=== PATIENT | female | born 1980 | race Caucasian/White ===

== ENCOUNTER 2016-11-15 19:56 | Emergency (ER) | payer OTHER ==
[~2016-11-15] VITALS: Ht 175.3 cm; Wt 117.9 kg
--- NOTE | ~2016-11-15 | EKG ---
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
[~2016-11-15 19:56] MED LIST: ADVAIR HFA 1112 UNIT INH; ALBUTEROL2.5 MG/0.5 INH; ALPRAZOLAM; ALPRAZOLAM1 MG PO; AMBIEN 10 MG TA10 MG; AMBIEN 5 MG TABL5 M1 PO; AMITRIPTYLINE H10 M3 PO; AMOXICILLIN 50500 M1 PO; AMOXICILLIN500 M1 PO; AUGMENTIN 875875 MG PO; AZITHROMYCIN 2250 MG PO; BENADRYL25 MG PO; BENZONATATE100 MG PO; BIRTH CONTROL; BIRTH CONTROL PO; CARAFATE 11 GM/10 M1 PO; CARISOPRODOL 3350 MG PO; CIPROFLOXACIN500 M1 PO; CITRUCEL CAPLET1 TA1 PO; COMBIVENT INH; CYCLOBENZAPRINE; CYMBALTA30 MG PO; DILAUDID 4 MG TA4 M1 OR; DILAUDID OR; DILAUDID2 M1 PO; DOXYCYCLINE 10100 MG PO; DUONEB 2.5-0.5 M3 ML IH; DUONEB 2.5-0.5 M3 ML INH; FLAGYL500 MG PO; FLEXERIL; FLEXERIL PO; FLONASE 0.05%50 MCG NASAL; FLOXIN OTI0.3 %/5 M1 OT; GLUCOPHAGE1000 MG PO; HYDROCODON-ACE1 EAC7 PO; IBUPROFEN 800800 M1 PO; INVOKANA300 MG PO; IRON325; JANUMET 50-5001 EACH PO; JANUVIA100 MG PO; JANUVIA50 MG; LANTUS; LANTUS SC; LANTUS SQ; LANTUS SUBQ; LANTUS100 UNIT/M SUBQ; LISINOPRIL20 MG PO; LISINOPRIL40 MG PO; LOESTRIN 24 FE1 EACH PO; LOVASTAT20 PO; LUNESTA3 MG PO; MACROBID 100 M100 M1 PO; MEDROLDOSEPACK PO; MINASTRIN 24 F1 EACH PO; MUCINEX DM ER1 EAC1 PO; MUCINEX DM TABL1 TA1 PO; NICOTINE TRANSD14 M1 TD; NICOTINE TRANSD21 M1 TRANSDERM; NOHOMEMEDICATIONS; NORCO 5-325 TA1 EACH PO; NORCO 7.5-3251 EACH PO; NORVASC 2.5 MG2.5 M1 PO; NOVOLOG100 UNIT/1 SQ; NOVOLOG100 UNIT/1 SUBQ; PENICILLIN VK500 M1 PO; PHENERGAN 25 MG25 M1 PO; PHENERGAN 25 MG25 MG PO; PHENERGAN-CODE120 ML PO; PREDNISONE 10 M10 M1; PREDNISONE 10 M10 M1 PO; PREDNISONE 20 M20 M1 PO; PREDNISONE 20 M20 MG PO; PREDNISONE50 MG PO; PROAIR HFA8.5 GM INH; PROAMATINE OR; PROMETHAZINE V480 M1 PO; PROMETHAZINE/C118 ML PO; PROMS25 WY RECTAL; PROVENTIL HFA6.7 G1 INH; PROVENTIL IN; PT NOT TAKING MEDS; QVAR HFA 440 MCG/UN1 INH; RANITIDINE 150150 M1 PO; REGLAN 10 MG TA10 MG PO; TESSALON200 MG PO; ULTRAM 50MG TAB50 MG PO; VALIUM2 MG PO; VANCOCIN HCL125 MG OR; VENTOLIN HFA INH8 GM INH; VENTOLIN17 GM INH; VERAPAMIL HCL180 M4 OR; VICODIN 5-5001 EACH PO; VICOPROFEN 2001 EACH PO; VITAMIN D 5050000 I1 PO; XANAX 0.5 MG0.5 M1 PO; XANAX XR1 MG; XANAX XR1 MG PO; XANAX1 MG PO; ZANTAC 150MG T150 M1; ZANTAC 150MG T150 M1 PO; ZOFRAN ODT4 MG PO; ZPAK PO; ZYRTEC-D TABLE1 EAC1 PO
[2016-11-15 22:04] LABS: ABSOLUTE NEUTROPHILS 5.7 thou/uL (1.4-8.2); BASOPHILS 0.7 % (0.0-2.0); EOSINOPHILS 3.5 % (0.0-3.0); HEMATOCRIT 41.6 % (37.0-47.0); HEMOGLOBIN 13.8 gm/dL (12.0-15.0); LYMPHOCYTES 23.4 % (24.0-44.0); MCHC 33.1 % (28.0-37.0); MCV 78.5 fL (80.0-100.0); MONOCYTES 7.1 % (1.0-8.0); PLATELET COUNT 239 thou/uL (150-400); POLYS 65.3 % (36.0-66.0); WBC 8.7 thou/uL (4.0-11.0)
[2016-11-15 22:10] LABS: MANUAL DIFF NO
[2016-11-15 23:35] LABS: POTASSIUM 3.8 mmol/L (3.5-5.1)
[2016-11-15 23:39] LABS: CALCIUM 8.9 mg/dL (8.5-10.1); CREATININE 0.7 mg/dL (0.6-1.3)
[2016-11-15 23:42] LABS: ALBUMIN 3.5 g/dL (3.4-5.0)
[2016-11-15] MEDS ORDERED: PREDNISONE 20 M20 MG PO (23:42)
[2016-11-15] MEDS ORDERED: VENTOLIN HFA 1818 GM INH (23:42)
[2016-11-15] MEDS ORDERED: TYLENOL WITH CO1 TA1 PO (23:42)
[2016-11-15 23:44] LABS: TOTAL BILIRUBIN 0.3 mg/dL (<0.1-1.0); TOTAL PROTEIN 8.1 g/dL (6.4-8.2)
[2016-12-09] MEDS ORDERED: NAPROSYN500 MG PO (21:51)
[2016-12-09] MEDS ORDERED: VENTOLIN HFA 1818 GM INH (21:51)
[2016-12-09] MEDS ORDERED: TESSALON PERLE100 MG PO (21:51)
[2017-01-02] MEDS ORDERED: VICTOZA0.6 MG/0.1 SUBQ (15:26)
[2017-01-02] MEDS ORDERED: BENTYL 20 MG TA20 M1 PO (19:45)
[2017-01-02] MEDS ORDERED: REGLAN 5 MG TAB5 MG PO (19:45)
== END 2016-11-16 01:09 | disposition home or self-care (01) ==
LOC: ER 19:56
PROVIDERS: Emergency Medicine
DX: J45.909 Unspecified asthma, uncomplicated (principal); E11.9 Type 2 diabetes mellitus without complications; I10 Essential (primary) hypertension; F41.9 Anxiety disorder, unspecified; E78.5 Hyperlipidemia, unspecified; E66.9 Obesity, unspecified; Z88.6 Allergy status to analgesic agent; F17.210 Nicotine dependence, cigarettes, uncomplicated; F10.99 Alcohol use, unspecified with unspecified alcohol-induced disorder

== ENCOUNTER 2018-05-01 01:29 | Emergency (ER) | payer OTHER ==
[~2018-05-01] VITALS: Ht 172.7 cm; Wt 127.0 kg
[~2018-05-01 01:29] MED LIST changes: +BENTYL 20 MG TA20 M1 PO; +NAPROSYN500 MG PO; +REGLAN 5 MG TAB5 MG PO; +TESSALON PERLE100 MG PO; +TYLENOL WITH CO1 TA1 PO; +VENTOLIN HFA 1818 GM INH; +VICTOZA0.6 MG/0.1 SUBQ
[2018-05-01 02:02] LABS: ABSOLUTE NEUTROPHILS 5.9 thou/uL (1.4-8.2); BASOPHILS 0.7 % (0.0-2.0); EOSINOPHILS 3.8 % (0.0-3.0); HEMATOCRIT 39.1 % (37.0-47.0); HEMOGLOBIN 13.6 gm/dL (12.0-15.0); LYMPHOCYTES 39.8 % (24.0-44.0); MCH 27.4 pg (26.0-34.0); MCHC 34.8 g/dL (28.0-37.0); MCV 78.8 fL (80.0-100.0); MONOCYTES 4.4 % (1.0-8.0); PLATELET COUNT 308 thou/uL (150-400); POLYS 51.3 % (36.0-66.0); RBC 4.97 mil/uL (4.20-5.00); RDW 13.6 % (10.5-14.5); WBC 11.5 thou/uL (4.0-11.0)
[2018-05-01 02:10] LABS: ANION GAP 10 mmol/L (7-16); BUN 11 mg/dL (7-18); CALCIUM 9.2 mg/dL (8.5-10.1); CHLORIDE 96 mmol/L (98-107); CO2 24 mmol/L (21-32); CREATININE 0.9 mg/dL (0.6-1.0); GLUCOSE 396 mg/dL (74-106); POTASSIUM 4.1 mmol/L (3.5-5.1); SODIUM 130 mmol/L (136-145)
[2018-05-01 02:16] LABS: ALBUMIN 3.2 g/dL (3.4-5.0); DIRECT BILIRUBIN < 0.1 mg/dL (<0.1-0.3); SGOT 37 U/L (15-37); SGPT 31 U/L (30-65); TOTAL BILIRUBIN 0.2 mg/dL (<0.1-1.0); TOTAL PROTEIN 7.7 g/dL (6.4-8.2)
[2018-05-01 02:43] LABS: URINE BILIRUBIN NEGATIVE (Negative); URINE BLOOD NEGATIVE (Negative); URINE CLARITY CLEAR; URINE COLOR YELLOW; URINE GLUCOSE-RANDOM* 3+ (Negative); URINE KETONES NEGATIVE (Negative); URINE LEUKOCYTES-REFLEX NEGATIVE (Negative); URINE NITRITE-REFLEX NEGATIVE (Negative); URINE PROTEIN (DIPSTICK) NEGATIVE (Negative); URINE SPECIFIC GRAVITY <= 1.005 (1.005-1.035); URINE UROBILINOGEN 0.2 E.U./dl (0.2-1.0)
[2018-05-01] MEDS ORDERED: PHENERGAN 25 MG25 M1 PO (03:43)
== END 2018-05-01 03:48 | disposition home or self-care (01) ==
LOC: ER 01:29
PROVIDERS: Emergency Medicine
DX: R51 Headache (principal); R42 Dizziness and giddiness; R53.1 Weakness; I10 Essential (primary) hypertension; E78.5 Hyperlipidemia, unspecified; J45.909 Unspecified asthma, uncomplicated; E11.9 Type 2 diabetes mellitus without complications; M79.7 Fibromyalgia; F41.9 Anxiety disorder, unspecified; F17.210 Nicotine dependence, cigarettes, uncomplicated; Z88.5 Allergy status to narcotic agent

== ENCOUNTER 2018-07-20 11:35 | Emergency (ER) | payer OTHER ==
[~2018-07-20] VITALS: Ht 170.2 cm; Wt 117.9 kg
--- NOTE | ~2018-07-20 | EKG ---
[address] [address] ELECTROCARDIOGRAM REPORT Name: RO REA Room #: DEP [facility]#: [id number] Admission: 07/20/18 Attend Phys: Discharge: 07/20/18 Date of : 84 Report #: [id number] THIS REPORT FOR: //name// 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
[2018-07-20 13:05] LABS: BASOPHILS 0.6 % (0.0-2.0); EOSINOPHILS 2.1 % (0.0-3.0); HEMATOCRIT 40.1 % (37.0-47.0); HEMOGLOBIN 13.4 gm/dL (12.0-15.0); LYMPHOCYTES 43.3 % (24.0-44.0); MCH 26.5 pg (26.0-34.0); MCHC 33.5 g/dL (28.0-37.0); MCV 79.1 fL (80.0-100.0); MONOCYTES 4.2 % (1.0-8.0); PLATELET COUNT 240 thou/uL (150-400); POLYS 49.8 % (36.0-66.0); RBC 5.07 mil/uL (4.20-5.00); RDW 13.7 % (10.5-14.5); WBC 8.1 thou/uL (4.0-11.0)
[2018-07-20 13:15] LABS: CALCIUM 9.3 mg/dL (8.5-10.1); CREATININE 0.7 mg/dL (0.6-1.0); POTASSIUM 3.6 mmol/L (3.5-5.1)
[2018-07-20] MEDS ORDERED: TUSSIONEX PENN115 ML PO (14:19)
[2018-07-20] MEDS ORDERED: ALBUTEROL2.5 MG/31 INH (14:19)
[2018-07-20] MEDS ORDERED: PREDNISONE 20 M20 MG PO (15:13)
[2018-07-20] MEDS ORDERED: NORFLEX100 MG PO (15:33)
== END 2018-07-20 16:25 | disposition home or self-care (01) ==
LOC: ER 11:35
PROVIDERS: Emergency Medicine
DX: R05 Cough (principal); J02.9 Acute pharyngitis, unspecified; R11.0 Nausea; R42 Dizziness and giddiness; M25.511 Pain in right shoulder; E11.9 Type 2 diabetes mellitus without complications; J45.909 Unspecified asthma, uncomplicated; I10 Essential (primary) hypertension; E78.5 Hyperlipidemia, unspecified; F17.210 Nicotine dependence, cigarettes, uncomplicated; Z88.5 Allergy status to narcotic agent; Z88.8 Allergy status to other drugs, medicaments and biological substances

== ENCOUNTER 2018-12-31 05:28 | Inpatient (IN) | payer OTHER ==
[~2018-12-31] VITALS: Ht 172.7 cm; Wt 116.1 kg
[~2018-12-31 05:28] MED LIST changes: +ALBUTEROL2.5 MG/31 INH; +AMARYL2 MG PO; +BENZONATATE200 MG PO; +ESZOPICLONE3 MG PO; +FIRVANQ50 MG/1 ML PO; +FLUCONAZOLE 10100 MG PO; +GABAPENTIN 100100 MG PO; +LIPITOR10 MG PO; +MELATONIN5 M1 PO; +NORFLEX100 MG PO; +TUSSIONEX PENN115 ML PO; +VANCOCIN 250 M250 M1 PO; +ZANAFLEX4 MG PO
[2018-12-31 05:45] VITALS: BP 153/103
[2018-12-31 06:14] LABS: URINE BILIRUBIN NEGATIVE (Negative); URINE BLOOD 3+ (Negative); URINE GLUCOSE-RANDOM* NEGATIVE (Negative); URINE KETONES TRACE (Negative); URINE LEUKOCYTES-REFLEX NEGATIVE (Negative); URINE NITRITE-REFLEX NEGATIVE (Negative); URINE PROTEIN (DIPSTICK) 2+ (Negative); URINE SPECIFIC GRAVITY >= 1.030 (1.005-1.035); URINE UROBILINOGEN 0.2 E.U./dl (0.2-1.0)
[2018-12-31 06:16] LABS: URINE CLARITY CLOUDY; URINE COLOR DK YELLOW
[2018-12-31 06:18] LABS: CASTS None Seen /LPF (None Seen); SQUAMOUS >10 Many /LPF (0-3)
[2018-12-31 06:19] LABS: MUCUS >6 Heavy strn/LPF (None Seen)
[2018-12-31 06:20] LABS: BACTERIA-REFLEX 1-9 Few /HPF (None Seen); CRYSTALS None Seen /LPF (None Seen); URINE RBC >20 Many /HPF (0-2); URINE WBC-REFLEX 6-15 Few /HPF (0-5)
[2018-12-31 06:35] LABS: ABSOLUTE NEUTROPHILS 9.5 thou/uL (1.4-8.2); BASOPHILS 1.3 % (0.0-2.0); EOSINOPHILS 2.1 % (0.0-3.0); HEMATOCRIT 38.7 % (37.0-47.0); HEMOGLOBIN 13.1 gm/dL (12.0-15.0); LYMPHOCYTES 26.4 % (24.0-44.0); MCH 27.1 pg (26.0-34.0); MCHC 33.7 g/dL (28.0-37.0); MCV 80.3 fL (80.0-100.0); MONOCYTES 4.7 % (1.0-8.0); PLATELET COUNT 292 thou/uL (150-400); POLYS 65.5 % (36.0-66.0); RBC 4.82 mil/uL (4.20-5.00); RDW 13.7 % (10.5-14.5); WBC 14.4 thou/uL (4.0-11.0)
[2018-12-31 06:44] LABS: ANION GAP 13 mmol/L (7-16); BUN 10 mg/dL (7-18); CALCIUM 9.6 mg/dL (8.5-10.1); CHLORIDE 101 mmol/L (98-107); CO2 24 mmol/L (21-32); CREATININE 0.7 mg/dL (0.6-1.0); GLUCOSE 173 mg/dL (74-106); POTASSIUM 3.7 mmol/L (3.5-5.1); SODIUM 138 mmol/L (136-145)
[2018-12-31 06:50] LABS: ALBUMIN 3.3 g/dL (3.4-5.0); DIRECT BILIRUBIN < 0.1 mg/dL (<0.1-0.3); LIPASE 87 U/L (73-393); SGOT 23 U/L (15-37); SGPT 23 U/L (30-65); TOTAL BILIRUBIN 0.3 mg/dL (<0.1-1.0); TOTAL PROTEIN 7.7 g/dL (6.4-8.2)
[2018-12-31 12:14] VITALS: BP 110/62
[2018-12-31 13:40] VITALS: BP 112/53
[2018-12-31] MEDS ORDERED: LIPITOR10 MG PO (14:15)
[2018-12-31] MEDS ORDERED: LANTUS100 UNIT/M SUBQ (14:18)
[2018-12-31] MEDS ORDERED: NORCO 10-325 T1 EACH PO (14:20)
[2018-12-31 15:15] VITALS: BP 141/84
[2018-12-31 16:23] LABS: URINE BILIRUBIN NEGATIVE (Negative); URINE BLOOD 3+ (Negative); URINE CLARITY CLEAR; URINE COLOR YELLOW; URINE GLUCOSE-RANDOM* NEGATIVE (Negative); URINE KETONES NEGATIVE (Negative); URINE LEUKOCYTES-REFLEX NEGATIVE (Negative); URINE NITRITE-REFLEX NEGATIVE (Negative); URINE PROTEIN (DIPSTICK) 1+ (Negative); URINE SPECIFIC GRAVITY 1.015 (1.005-1.035); URINE UROBILINOGEN 0.2 E.U./dl (0.2-1.0)
[2018-12-31 16:31] LABS: BACTERIA-REFLEX 1-9 Few /HPF (None Seen); CASTS None Seen /LPF (None Seen); CRYSTALS None Seen /LPF (None Seen); SQUAMOUS 0-3 Few /LPF (0-3); URINE RBC 3-10 Few /HPF (0-2); URINE WBC-REFLEX 0-5 Rare /HPF (0-5)
--- NOTE | 2018-12-31 17:51 | NUR ---
PT ARRIVED FROM ER 1400 FOR POLYNEPHROLOGY AND INTRACTABLE PAIN. ALERTX4, VSS, PAIN MANAGED WITH MEDICATIONS, STEADY GAIT. UA SENT, ORRIENTED TO ROOM. ADMISSION ASSESMENT AND HISTORY COMPLETED. CONSULTED BY DR HAWLEY WITH PELVIC EXAM COMPLETED. CALL LIGHT IN REACH.
[2018-12-31 19:28] VITALS: BP 148/78
[2019-01-01 03:49] VITALS: BP 114/72
[2019-01-01 04:04] LABS: ABSOLUTE NEUTROPHILS 5.7 thou/uL (1.4-8.2); BASOPHILS 0.5 % (0.0-2.0); HEMATOCRIT 32.6 % (37.0-47.0); LYMPHOCYTES 40.6 % (24.0-44.0); MCH 27.5 pg (26.0-34.0); MCHC 33.7 g/dL (28.0-37.0); MCV 81.6 fL (80.0-100.0); PLATELET COUNT 215 thou/uL (150-400); POLYS 50.9 % (36.0-66.0); RBC 3.99 mil/uL (4.20-5.00); RDW 13.3 % (10.5-14.5); WBC 11.1 thou/uL (4.0-11.0)
[2019-01-01 04:17] LABS: CREATININE 0.6 mg/dL (0.6-1.0); MAGNESIUM 1.5 mg/dL (1.8-2.4); POTASSIUM 3.3 mmol/L (3.5-5.1)
[2019-01-01 04:18] LABS: CALCIUM 7.2 mg/dL (8.5-10.1)
--- NOTE | 2019-01-01 06:55 | NUR ---
Pt. rested quietly very little during the night when checked on during frequent rounds. She c/o abdominal pain and was given pain meds (see emar) with some relief noted. No c/o nausea. Up to the bathroom with stand by assistance.
[2019-01-01 07:30] VITALS: BP 130/60
--- NOTE | 2019-01-01 08:26 | NUR ---
chart review, speaking with pt at bedside. pt is a & o x 3, and able to make her needs know. possible dc today. after md visited with pt, intro to cm, and transition of care " just do not understand how er said i have uti, with bacteria, mucous and blood"/charles. re enforced stated " might need oupt urology"/. pt reported " live home with and daughter. they help me, on disability, i am always sick and have low immune system. hard times, my father just . i have djd and have 15 stair, it hard but and daughter help out allot. have right knee bone problems, fibromyalgia, and back problems. i see neuro for my back at [facility], have obgyn, [place] [facility] [place] i am able to do get dress, walk, shower and it just take me little longer. check by bs at home and give myself my insulin. still drive some."/charles. if i go home today, it will need to be later because my works today"/pt. cm passed on information to bedside nurse. will cont following as needed for dc needs. dcp home
--- NOTE | 2019-01-01 14:28 | NUR ---
ASSUMED CARE 0700. A/X4, PAIN MANAGED WITH MEDICATIONS, VSS. ABLE TO MAKE NEEDS KNOWN, UP AB KAREEM, STARTED MENSES, PELVIC EXAM BY DR HAWLEY TODAY. PT VOICE ABD PAIN HAS IMPROVED. UA AND LABS PENDING. PT VOICED SHE HOPES TO GO HOME TODAY. CALL LIGHT IN REACH
[2019-01-01 15:06] LABS: HEPATITIS B SURFACE AG Negative (Negative); HEPATITIS C VIRUS AB <0.1 (0.0-0.9); HIV ANTIBODY Non Reactive (Non Reactive)
[2019-01-01 15:15] VITALS: BP 145/83
--- NOTE | 2019-01-01 18:01 | HC ---
Former[facility] [place] [address] CONSULTATION Name: RO REA Room #: 458-P ADM IN M.R.#: [id number] Admission: 12/31/18 ������������������ Attend Phys: Chacho Morel MD Discharge: ������������������ Date of : 84 Report #: [id number] THIS REPORT FOR: //name// CC: Mary Carmen Morel DATE OF SERVICE: 12/31/2018 TYPE OF REPORT: Infectious diseases consultation. REASON FOR CONSULTATION: I was asked to evaluate concerning abdominal pain and suspected pelvic infection. HISTORY OF PRESENT ILLNESS: The patient is a 38-year-old diabetic, insulin-dependent with underlying history of fibromyalgia and obstructive sleep apnea. She presents with a 2-day history of dysuria along with some hematuria. She has had lower abdominal pain and loose stool. She has had some nausea without vomiting. She has noticed chills without measuring fever. She has been anorexic. Denies any prior history of urinary tract infection. She has had chlamydia within the last year as well as C. difficile colitis. She has had no travel. and has a 16-year-old daughter. Nonsmoker with no significant alcohol intake. The patient reports abdominal pain has fairly constant in nature, started out in the pelvic region and has gotten up to the periumbilical region. She has also had some pain in her back. Denies any headache, cough or sputum production. She has had no rash or arthritis symptoms. No other neurologic issues. Her blood sugars have been elevated despite insulin and poor oral intake. She does note that she has started vaginal spotting over the last month despite being on control. REVIEW OF SYSTEMS: A 10-point review negative other than what is described above, ALLERGIES: MORPHINE and PROMETHAZINE. MEDICATIONS: As noted on her MAR, given ceftriaxone and doxycycline in the Emergency Room. Other medicines as noted on her DEC. PAST MEDICAL HISTORY: Diabetes, asthma, IBS, hypertension, hyperlipidemia, fibromyalgia, anxiety, gastroparesis, C. difficile colitis, obesity, ovarian cyst, cervical dysplasia, CPAP use for obstructive sleep apnea, DKA, tonsillectomy, laparoscopic and ovarian cystectomy. FAMILY HISTORY: Noncontributory. [facility] [address] [place] [address] CONSULTATION Name: RO REA Room #: 458-P [facility] IN M.R.#: [id number] Admission: 12/31/18 ������������������ Attend Phys: Chacho Morel MD Discharge: ������������������ Date of : 84 Report #: [id number] SOCIAL HISTORY: Smoker of cigarettes. No significant alcohol intake. PHYSICAL EXAMINATION: VITAL SIGNS: Afebrile and hemodynamically stable. GENERAL: She is alert and cooperative and pleasant, in no acute distress, appeared her stated age. SKIN: Without rash or decubitus. No palpable adenopathy. HEENT: Eyes, without scleral icterus. Mouth without mucositis. NECK: Supple, with no thyromegaly or mass. LUNGS: Clear. CARDIOVASCULAR: Regular, without murmur, gallop or rub. ABDOMEN: Obese, soft and tender in the lower abdomen and suprapubic region. No appreciable mass or hepatosplenomegaly palpable. No CVA tenderness. GENITAL AND RECTAL: Not performed as this was completed by Gynecology earlier today. The patient did note during that examination, she had some tenderness over her uterus. Review of pelvic examination reports does note bladder tenderness and mild tenderness in the right adnexa and no vaginal discharge. EXTREMITIES: No cyanosis, clubbing or edema. NEUROLOGICAL: Nonfocal with strength, normal upper and lower extremities. Sensation, normal upper and lower extremities. Cranial nerves intact. Mood normal. LABORATORY STUDIES: Reviewed. MICROBIOLOGY DATA: Reports are pending, urine culture. RADIOLOGICAL DATA: CT scan and ultrasound reviewed. IMPRESSION: A 38-year old with pelvic infection and I am suspecting urinary tract infection by history. Urinalysis, however, was unremarkable. I am questioning whether there was a lab error. Other consideration would be pelvic inflammatory disease given her previous history of chlamydia. Has a previous history of Clostridium difficile colitis, although no evidence of inflammatory colonic change on CT scan. RECOMMENDATIONS: We will continue with ceftriaxone and doxycycline. Repeat urinalysis and urine culture. Give empiric vancomycin while on systemic antibiotics. Follow up CBC. Check urine for GC chlamydia, hepatitis studies and HIV studies. ��������������������������������������������� <ELECTRONICALLY SIGNED> ���������������������������������������� By: Chi Guaman MD ��������������������������������������������� 01/01/19 1801 2255 0440 Chi Guaman MD /nt
[2019-01-01] MEDS ORDERED: DOXYCYCLINE HYC50 MG PO (19:09)
[2019-01-01] MEDS ORDERED: METRONIDAZOLE500 M4 PO (19:09)
[2019-01-01] MEDS ORDERED: CEFDINIR300 MG PO (19:10)
[2019-01-01 19:16] VITALS: BP 145/83
--- NOTE | 2019-01-01 20:00 | NUR ---
PT DC'S HOME WITH MEDICATION SCRIPTS INCLUDING MEDICATION INFORMATION. ENCOURAGE PT TO FOLLOW UP WITH DR HOUSER.
[2019-01-03 12:06] LABS: SYPHILIS AB Negative (Negative)
== END 2019-01-01 19:00 | disposition home or self-care (01) | DRG 759 ==
LOC: ER 05:28 → EROBS 11:34 → 4W 11:34
PROVIDERS: Emergency Medicine; Nurse Practitioner; Obstetrics & Gynecology; Specialist; ADMIT Internal Medicine
DX: N73.9 Female pelvic inflammatory disease, unspecified (principal); N30.10 Interstitial cystitis (chronic) without hematuria; J45.909 Unspecified asthma, uncomplicated; I10 Essential (primary) hypertension; E78.5 Hyperlipidemia, unspecified; E66.9 Obesity, unspecified; G47.33 Obstructive sleep apnea (adult) (pediatric); F17.210 Nicotine dependence, cigarettes, uncomplicated; F32.9 Major depressive disorder, single episode, unspecified; M79.7 Fibromyalgia; E11.43 Type 2 diabetes mellitus with diabetic autonomic (poly)neuropathy; K58.9 Irritable bowel syndrome, unspecified; M19.90 Unspecified osteoarthritis, unspecified site; K31.84 Gastroparesis; D72.829 Elevated white blood cell count, unspecified; N83.201 Unspecified ovarian cyst, right side; Z68.38 Body mass index [BMI] 38.0-38.9, adult; Z88.6 Allergy status to analgesic agent; Z88.8 Allergy status to other drugs, medicaments and biological substances; Z79.4 Long term (current) use of insulin; Z90.6 Acquired absence of other parts of urinary tract; Z79.899 Other long term (current) drug therapy; Z80.1 Family history of malignant neoplasm of trachea, bronchus and lung; Z80.3 Family history of malignant neoplasm of breast
CPT/HCPCS: 10040

== ENCOUNTER 2019-06-10 07:06 | Emergency (ER) | payer OTHER ==
[~2019-06-10] VITALS: Ht 170.2 cm; Wt 117.9 kg
[~2019-06-10 07:06] MED LIST changes: +CEFDINIR300 MG PO; +DOXYCYCLINE HYC50 MG PO; +METRONIDAZOLE500 M4 PO; +NORCO 10-325 T1 EACH PO
[2019-06-10 07:47] LABS: ABSOLUTE NEUTROPHILS 6.1 thou/uL (1.4-8.2); BASOPHILS 0.8 % (0.0-2.0); HEMATOCRIT 43.3 % (37.0-47.0); HEMOGLOBIN 14.7 gm/dL (12.0-15.0); LYMPHOCYTES 36.2 % (24.0-44.0); MCH 27.5 pg (26.0-34.0); MCHC 33.9 g/dL (28.0-37.0); MCV 81.1 fL (80.0-100.0); MONOCYTES 5.9 % (1.0-8.0); PLATELET COUNT 275 thou/uL (150-400); POLYS 53.1 % (36.0-66.0); RBC 5.34 mil/uL (4.20-5.00); RDW 13.8 % (10.5-14.5); WBC 11.6 thou/uL (4.0-11.0)
[2019-06-10 07:56] LABS: CALCIUM 9.7 mg/dL (8.5-10.1); CREATININE 0.7 mg/dL (0.6-1.0); POTASSIUM 3.9 mmol/L (3.5-5.1)
[2019-06-10 08:02] LABS: ALBUMIN 3.8 g/dL (3.4-5.0); TOTAL BILIRUBIN 0.3 mg/dL (<0.1-1.0); TOTAL PROTEIN 7.7 g/dL (6.4-8.2)
[2019-06-10] MEDS ORDERED: FENOFIBRATE160 MG PO (08:53)
[2019-06-10 09:57] VITALS: BP 133/70
[2019-06-10 15:35] LABS: URINE BILIRUBIN NEGATIVE (Negative); URINE BLOOD TRACE (Negative); URINE CLARITY CLOUDY; URINE COLOR YELLOW; URINE GLUCOSE-RANDOM* 2+ (Negative); URINE KETONES NEGATIVE (Negative); URINE LEUKOCYTES-REFLEX NEGATIVE (Negative); URINE NITRITE-REFLEX NEGATIVE (Negative); URINE PROTEIN (DIPSTICK) NEGATIVE (Negative); URINE SPECIFIC GRAVITY >= 1.030 (1.005-1.035); URINE UROBILINOGEN 0.2 E.U./dl (0.2-1.0)
--- NOTE | 2019-06-11 18:04 | EKG ---
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
== END 2019-06-10 10:13 | disposition home or self-care (01) ==
LOC: ER 07:06
PROVIDERS: Emergency Medicine
DX: R10.31 Right lower quadrant pain (principal); E11.9 Type 2 diabetes mellitus without complications; J45.909 Unspecified asthma, uncomplicated; I10 Essential (primary) hypertension; M79.7 Fibromyalgia; E11.43 Type 2 diabetes mellitus with diabetic autonomic (poly)neuropathy; K31.84 Gastroparesis; E66.01 Morbid (severe) obesity due to excess calories; F17.210 Nicotine dependence, cigarettes, uncomplicated; Z88.5 Allergy status to narcotic agent; Z88.6 Allergy status to analgesic agent; Z79.4 Long term (current) use of insulin; Z79.899 Other long term (current) drug therapy

== ENCOUNTER 2019-06-16 16:06 | Emergency (ER) | payer OTHER ==
[~2019-06-16] VITALS: Ht 170.2 cm; Wt 113.4 kg
[~2019-06-16 16:06] MED LIST changes: +FENOFIBRATE160 MG PO
[2019-06-16 17:24] LABS: ABSOLUTE NEUTROPHILS 8.2 thou/uL (1.4-8.2); BASOPHILS 1.3 % (0.0-2.0); EOSINOPHILS 3.1 % (0.0-3.0); HEMATOCRIT 41.5 % (37.0-47.0); HEMOGLOBIN 14.1 gm/dL (12.0-15.0); LYMPHOCYTES 26.9 % (24.0-44.0); MCH 27.6 pg (26.0-34.0); MCV 81.1 fL (80.0-100.0); MONOCYTES 4.2 % (1.0-8.0); PLATELET COUNT 302 thou/uL (150-400); POLYS 64.5 % (36.0-66.0); RBC 5.12 mil/uL (4.20-5.00); RDW 13.8 % (10.5-14.5); WBC 12.7 thou/uL (4.0-11.0)
[2019-06-16 17:35] LABS: CALCIUM 9.3 mg/dL (8.5-10.1); CREATININE 0.7 mg/dL (0.6-1.0); POTASSIUM 3.7 mmol/L (3.5-5.1)
[2019-06-16 17:42] LABS: ALBUMIN 3.8 g/dL (3.4-5.0); TOTAL BILIRUBIN 0.3 mg/dL (<0.1-1.0); TOTAL PROTEIN 7.7 g/dL (6.4-8.2)
[2019-06-16 20:23] VITALS: BP 131/96
== END 2019-06-16 20:25 ==
LOC: ER 16:06
PROVIDERS: Physician Assistant
DX: M54.2 Cervicalgia (principal); M54.5 Low back pain; R10.13 Epigastric pain; F17.210 Nicotine dependence, cigarettes, uncomplicated; J45.909 Unspecified asthma, uncomplicated; K58.9 Irritable bowel syndrome, unspecified; I10 Essential (primary) hypertension; E78.5 Hyperlipidemia, unspecified; M79.7 Fibromyalgia; F41.9 Anxiety disorder, unspecified; E11.10 Type 2 diabetes mellitus with ketoacidosis without coma; E11.43 Type 2 diabetes mellitus with diabetic autonomic (poly)neuropathy; K31.84 Gastroparesis; Z88.5 Allergy status to narcotic agent; Z88.8 Allergy status to other drugs, medicaments and biological substances; Z97.4 Presence of external hearing-aid; Y04.2XXA Assault by strike against or bumped into by another person, initial encounter; Y92.89 Other specified places as the place of occurrence of the external cause; Y93.89 Activity, other specified; Y99.8 Other external cause status

== ENCOUNTER 2019-07-28 03:27 | Inpatient (IN) | payer OTHER ==
[2019-07-28] VITALS (11 sets, daily range): BP systolic 119–163; BP diastolic 60–100
[~2019-07-28] VITALS: Ht 170.2 cm; Wt 117.9 kg
[2019-07-28 04:05] LABS: URINE BILIRUBIN NEGATIVE (Negative); URINE BLOOD NEGATIVE (Negative); URINE CLARITY CLEAR; URINE COLOR YELLOW; URINE GLUCOSE-RANDOM* 3+ (Negative); URINE KETONES NEGATIVE (Negative); URINE LEUKOCYTES-REFLEX NEGATIVE (Negative); URINE NITRITE-REFLEX NEGATIVE (Negative); URINE PROTEIN (DIPSTICK) NEGATIVE (Negative); URINE SPECIFIC GRAVITY 1.015 (1.005-1.035); URINE UROBILINOGEN 0.2 E.U./dl (0.2-1.0)
[2019-07-28 04:34] LABS: ABSOLUTE NEUTROPHILS 7.1 thou/uL (1.4-8.2); BASOPHILS 1.1 % (0.0-2.0); EOSINOPHILS 3.5 % (0.0-3.0); HEMATOCRIT 42.9 % (37.0-47.0); HEMOGLOBIN 14.4 gm/dL (12.0-15.0); LYMPHOCYTES 37.3 % (24.0-44.0); MCH 27.6 pg (26.0-34.0); MCHC 33.5 g/dL (28.0-37.0); MCV 82.3 fL (80.0-100.0); MONOCYTES 5.1 % (1.0-8.0); PLATELET COUNT 357 thou/uL (150-400); RBC 5.21 mil/uL (4.20-5.00); RDW 13.6 % (10.5-14.5); WBC 13.3 thou/uL (4.0-11.0)
[2019-07-28 04:38] LABS: ANION GAP 11 mmol/L (7-16); BUN 11 mg/dL (7-18); CALCIUM 9.5 mg/dL (8.5-10.1); CHLORIDE 99 mmol/L (98-107); CO2 27 mmol/L (21-32); CREATININE 0.9 mg/dL (0.6-1.0); GLUCOSE 336 mg/dL (74-106); POTASSIUM 3.9 mmol/L (3.5-5.1); SODIUM 137 mmol/L (136-145)
[2019-07-28 04:43] LABS: ALBUMIN 3.6 g/dL (3.4-5.0); DIRECT BILIRUBIN < 0.1 mg/dL (<0.1-0.3); LIPASE 149 U/L (73-393); SGOT 33 U/L (15-37); SGPT 32 U/L (30-65); TOTAL BILIRUBIN 0.3 mg/dL (<0.1-1.0); TOTAL PROTEIN 7.9 g/dL (6.4-8.2)
[2019-07-28] MEDS ORDERED: IBUPROFEN 800800 M1 PO (10:26)
[2019-07-28] MEDS ORDERED: ZANTAC 150MG T150 MG PO (10:27)
[2019-07-28] MEDS ORDERED: NORETHINDRONE0.35 MG PO (10:28)
--- NOTE | 2019-07-28 13:34 | NUR ---
PT WENT TO SURGERY AT 1333.
--- NOTE | 2019-07-28 16:31 | NUR ---
0930 ADMIT NOTE: PT ARRIVED TO UNIT VIA CART FROM ER. PT ARRIVED AT 0930. PT COMPLAINS OF DULL CONSTANT PAIN TO R LOWER ABD QUAD. PT STATES PAIN IS TOLERABLE AT THIS TIME AND WAS RECENTLY MEDICATED IN ER. PT STATES ON ARRIVAL THAT SHE IS NERVOUS AND WANTS TO WAIT UNTIL SHE TALKS TO HER FAMILY ABOUT HAVING SURGERY. PT HAD FRIEND ARRIVE WHO SAT AT BEDSIDE AND SPOKE WITH HER. PT SEEMED TO BE A LOT MORE CALM AND STATES SHE SPOKE WITH HOSPITALIST AND NOW WANTS TO HAVE SURGERY TODAY. NURSE SPOKE WITH HOSPITALIST AND OR STAFF AND SURGERY IS SCHEDULED FOR TODAY AT 1400.
--- NOTE | 2019-07-28 19:06 | NUR ---
pt has home control medication in pharmacy. see nursing note for order to give.
[2019-07-29 05:08] VITALS: BP 139/80
--- NOTE | 2019-07-29 06:17 | NUR ---
Pt. rested quietly at short intervals during the night when checked on during frequent rounds. She has been medicated for c/o abdominal pain with some relief of pain noted. Pt. nauseated this am and prn zofran given. Up to the bedside comode with one assist and has been voiding without difficulty.
[2019-07-29 07:31] VITALS: BP 147/70
[2019-07-29 08:23] LABS: HEMATOCRIT 40.2 % (37.0-47.0); HEMOGLOBIN 13.2 gm/dL (12.0-15.0); MCH 26.7 pg (26.0-34.0); MCHC 32.7 g/dL (28.0-37.0); MCV 81.7 fL (80.0-100.0); RBC 4.92 mil/uL (4.20-5.00); RDW 13.3 % (10.5-14.5); WBC 15.3 thou/uL (4.0-11.0)
[2019-07-29 08:33] LABS: CALCIUM 9.4 mg/dL (8.5-10.1); CREATININE 0.8 mg/dL (0.6-1.0); MAGNESIUM 1.7 mg/dL (1.8-2.4); POTASSIUM 3.8 mmol/L (3.5-5.1)
[2019-07-29 14:39] VITALS: BP 153/82
--- NOTE | 2019-07-29 15:27 | NUR ---
PT A&OX4, VSS, C/O GENERAL PAIN. PATIENT HAS 3 LAP SITES WITH DERMABOND, C/D/I. PATIENT AMBULATES TO BATHROOOM WITH STANDBY ASSIST. PATIENT STATES SHE HAS HIGH ANXIETY AND FEELS OVERWHELMED AT TIMES. MEDICATON GIVEN TO ASSIST WITH ANXIETY AND PAIN. PATIENT TOLERATING DIET. C/O NAUSEA THIS AM AND IS STABLE AT THIS TIME. WILL CONTINUE TO MONITOR.
[2019-07-29 19:32] VITALS: BP 148/52
--- NOTE | 2019-07-30 03:13 | NUR ---
ASSUMED CARE AROUND 1900. AXOX4. [facility]. NO S/S ACUTE DISTRESS NOTED OR REPORTED AT THIS TIME. WILL CONT TO MONITOR FOR ANY CHANGES IN CONDITION.
[2019-07-30 06:10] LABS: HEMATOCRIT 37.4 % (37.0-47.0); HEMOGLOBIN 12.1 gm/dL (12.0-15.0); MCHC 32.3 g/dL (28.0-37.0); MCV 83.4 fL (80.0-100.0); RBC 4.49 mil/uL (4.20-5.00); RDW 13.2 % (10.5-14.5); WBC 11.3 thou/uL (4.0-11.0)
[2019-07-30 06:35] LABS: CALCIUM 8.7 mg/dL (8.5-10.1); CREATININE 0.9 mg/dL (0.6-1.0); POTASSIUM 3.9 mmol/L (3.5-5.1)
[2019-07-30 07:44] VITALS: BP 139/72
--- NOTE | 2019-07-30 10:33 | NUR ---
Received awake on bed. Due medications given as prescribed, able to swallow meds w/o difficulty. On room air. On blood sugar monitoring- taken and recorded accordingly; with insulin coverage- given as prescribed. Able to tolerate regular diet- no nausea, no vomiting and abdominal pain noted. With With 3 lap sites with dermabond, C/D/I- no signs of infection noted. With NS at 100cc/hr, infusing well at L FA. Up ad ambrose, on standby assist. Vital signs stable. Seen by Dr Morel this AM- possible discharge this PM, ok for discharge from surgical standpoint. Complained of pain, due PRN pain meds given as prescribed.
[2019-07-30] MEDS ORDERED: HYDROCODON-ACE1 EAC7 PO (13:38)
[2019-07-30 14:46] VITALS: BP 139/72
[2019-08-02 13:46] LABS: GLYCOHEMOGLOBIN (HGB A1C) 10.1 % (4.8-5.6)
--- NOTE | 2019-08-02 13:46 | PATH ---
[facility] [address] [place] [address] PATHOLOGY RPT PROCEDURE Name: RO HERNANDEZ Room #: 449-I DIS IN M.R.#: [id number] Admission: 07/28/19 Date of : 84 Discharge: 07/30/19 Report #: [id number] Path Case #: [id number] [facility] Accession Number: [id number] . 01 Material submitted: . appendix - APPENDIX . 01 Clinical history: . Appendicitis . 02 Diagnosis: "Appendix", appendectomy: - Acute appendicitis. (CLW:esequiel; 07/30/2019) S 07/30/2019 1128 Local . 02 Electronically signed: . Melissa Chen MD, Pathologist NPI- [id number] . 01 Gross description: . The specimen is received in formalin, labeled "Hernandez, Ro, appendix" and consists of a curved appendix measuring 5.8 in length and up to 0.7 in diameter with mesoappendix measuring 1.8 thick. The serosa is pink-heath with hemorrhage at the tip. The margin is closed with a line of deborah and inked black. Sectioning reveals a pink heath pinpoint lumen is focally hemorrhagic. The appendix is entirely submitted in A1-A3. (SDY; 07/29/2019) SYU/SYU 07/29/2019 1203 Local . 02 Pathologist provided ICD-10: K35.80 . 02 CPT . 596672 Specimen Comment: A courtesy copy of this report has been sent to Specimen Comment: [phone], , . Specimen Comment: Report sent to ,DR FOSS / DR CARDOSO Performed at: [address], [place] [id number] MD Reed Hurley MD Phone: [phone] Performed at: [address] [id number] MD Samaria Leija MD Phone: [phone]
--- NOTE | 2019-09-08 07:54 | O ---
[facility] [place] [address] OPERATIVE REPORT Name: REARO DAY Room #: 449-I [facility] IN M.R.#: [id number] Admission: 07/28/19 Attend Phys: Chacho Morel MD Discharge: 07/30/19 Date of : 84 Report #: [id number] THIS REPORT FOR: //name// CC: Mary Carmen Morel DATE OF SERVICE: 07/28/2019 PREOPERATIVE DIAGNOSIS: Acute appendicitis. POSTOPERATIVE DIAGNOSIS: Acute appendicitis. OPERATIVE PROCEDURE DONE: Laparoscopic appendectomy. OPERATING SURGEON: Wilian Castro M.D. INDICATIONS FOR THE PROCEDURE: The patient is a 39-year-old female who presented with right lower quadrant pain that she has been having. Clinical exam and CT scan that was done showed features of acute appendicitis. The patient was advised laparoscopic appendectomy. The patient showed understanding and agreed to proceed. DESCRIPTION OF PROCEDURE: After explaining to the patient in detail and informed consent was obtained, the patient was identified in the preoperative holding area. The patient was transferred to the operating room and was placed in supine position. Sequential compressive devices were placed for DVT prophylaxis. Preoperative antibiotics were given. After induction of anesthesia, the abdomen was prepped and draped in a sterile fashion. Through a left upper quadrant stab incision using Veress needle technique, pneumoperitoneum was created. Thereafter through a 1 cm incision in the left lower quadrant region and using Optiview technique, a 5 mm trocar was introduced, a 12 mm trocar was placed through a supraumbilical incision, another 5 mm trocar was placed through a suprapubic incision approximately about 3 cm above the pubic symphysis. On initial inspection, the patient was noted to have features of acute appendicitis. A window was created in the mesoappendix. Appendix was then divided at the base using Endo-MOMO white load stapler. The mesoappendix was divided using another white load stapler. Appendix was then retrieved using an EndoCatch. Thorough saline irrigation was given. Absolute hemostasis was ensured. The 12 mm port site incision was closed with 0 Vicryl using a fascial closure device. Skin was closed with 4-0 Monocryl for all the incisions. Dermabond was applied. The patient was stable at the end of the procedure. The patient was awoken from anesthesia and was transferred to the recovery room in stable condition. ESTIMATED BLOOD LOSS: Minimal. [address] [address] OPERATIVE REPORT Name: RO REA Room #: 449-I DIS IN ..#: [id number] Admission: 07/28/19 Attend Phys: Chacho Morel MD Discharge: 07/30/19 Date of : 84 Report #: [id number] CONDITION OF THE PATIENT: Stable. FLUIDS GIVEN: Per Anesthesia note. SPECIMEN SENT: Appendix. COMPLICATIONS: None. ANESTHESIA: General anesthesia. <ELECTRONICALLY SIGNED> By: Wilian Castro MD 09/08/19 0754 0711 0723 Wilian Castro MD /nt
== END 2019-07-30 15:48 | disposition home or self-care (01) | DRG 342 ==
LOC: ER 03:27 → 4W 06:50 → EROBS 06:50 → ICU 09:15 → 4W 09:38 → ENTRNSPT 07-30 15:48 → 4W 07-30 15:48
PROVIDERS: Emergency Medicine; ADMIT Internal Medicine
PROC: 0DTJ4ZZ Resection of Appendix, Percutaneous Endoscopic Approach (ICD-10-PCS; principal; 2019-07-28)
DX: K35.80 Unspecified acute appendicitis (principal); Z68.41 Body mass index [BMI] 40.0-44.9, adult; J45.909 Unspecified asthma, uncomplicated; I10 Essential (primary) hypertension; E78.5 Hyperlipidemia, unspecified; F41.9 Anxiety disorder, unspecified; E66.9 Obesity, unspecified; G47.33 Obstructive sleep apnea (adult) (pediatric); F32.9 Major depressive disorder, single episode, unspecified; E11.43 Type 2 diabetes mellitus with diabetic autonomic (poly)neuropathy; K31.84 Gastroparesis; K58.9 Irritable bowel syndrome, unspecified; F17.210 Nicotine dependence, cigarettes, uncomplicated; E11.65 Type 2 diabetes mellitus with hyperglycemia; E83.42 Hypomagnesemia; Z80.3 Family history of malignant neoplasm of breast; Z28.21 Immunization not carried out because of patient refusal; Z88.6 Allergy status to analgesic agent; Z88.8 Allergy status to other drugs, medicaments and biological substances; Z79.4 Long term (current) use of insulin; Z80.1 Family history of malignant neoplasm of trachea, bronchus and lung
CPT/HCPCS: 10040; 50010; 50101; 50249; 50411; 50445; 50555; 50558; 50739; 50740; 51489; 51975; 52266; 53310; 54118; 56462; 56525; 56526; 62110; 62900; 70005

== ENCOUNTER 2019-10-22 18:07 | Emergency (ER) | payer OTHER ==
[~2019-10-22] VITALS: Ht 172.7 cm; Wt 122.5 kg
[~2019-10-22 18:07] MED LIST changes: +NORETHINDRONE0.35 MG PO; +ZANTAC 150MG T150 MG PO
[2019-10-22 21:21] LABS: ABSOLUTE NEUTROPHILS 7.3 thou/uL (1.4-8.2); EOSINOPHILS 2.2 % (0.0-3.0); HEMATOCRIT 41.2 % (37.0-47.0); HEMOGLOBIN 13.4 gm/dL (12.0-15.0); MCH 26.5 pg (26.0-34.0); MCHC 32.5 g/dL (28.0-37.0); MCV 81.4 fL (80.0-100.0); MONOCYTES 5.3 % (1.0-8.0); PLATELET COUNT 302 thou/uL (150-400); POLYS 54.5 % (36.0-66.0); RBC 5.06 mil/uL (4.20-5.00); RDW 14.1 % (10.5-14.5); WBC 13.5 thou/uL (4.0-11.0)
[2019-10-22 21:25] LABS: CALCIUM 9.3 mg/dL (8.5-10.1); CREATININE 0.8 mg/dL (0.6-1.0); POTASSIUM 3.6 mmol/L (3.5-5.1)
[2019-10-22 21:31] LABS: ALBUMIN 3.7 g/dL (3.4-5.0); TOTAL BILIRUBIN 0.6 mg/dL (<0.1-1.0); TOTAL PROTEIN 7.7 g/dL (6.4-8.2)
[2019-10-23] MEDS ORDERED: NORCO 5-325 TA1 EAC1 PO (00:33)
[2019-10-23] MEDS ORDERED: ZOFRAN ODT4 MG PO (00:33)
[2019-10-23] MEDS ORDERED: REGLAN 10 MG TA10 MG PO (01:46)
[2019-10-23 01:49] VITALS: BP 131/69
== END 2019-10-23 01:58 | disposition home or self-care (01) ==
LOC: ER 18:07
PROVIDERS: Emergency Medicine
DX: R19.7 Diarrhea, unspecified (principal); R11.2 Nausea with vomiting, unspecified; R10.84 Generalized abdominal pain; I10 Essential (primary) hypertension; E11.9 Type 2 diabetes mellitus without complications; J45.909 Unspecified asthma, uncomplicated; M79.7 Fibromyalgia; F41.9 Anxiety disorder, unspecified; F17.210 Nicotine dependence, cigarettes, uncomplicated; Z79.4 Long term (current) use of insulin; Z88.5 Allergy status to narcotic agent; Z88.8 Allergy status to other drugs, medicaments and biological substances

== ENCOUNTER 2019-10-26 21:51 | Emergency (ER) | payer OTHER ==
[~2019-10-26] VITALS: Ht 172.7 cm; Wt 117.9 kg
[~2019-10-26 21:51] MED LIST changes: +NORCO 5-325 TA1 EAC1 PO
[2019-10-26 23:04] LABS: ABSOLUTE NEUTROPHILS 9.2 thou/uL (1.4-8.2); BASOPHILS 0.3 % (0.0-2.0); EOSINOPHILS 0.3 % (0.0-3.0); HEMATOCRIT 43.8 % (37.0-47.0); HEMOGLOBIN 14.5 gm/dL (12.0-15.0); LYMPHOCYTES 9.3 % (24.0-44.0); MCH 27.1 pg (26.0-34.0); MCHC 33.1 g/dL (28.0-37.0); MCV 81.9 fL (80.0-100.0); MONOCYTES 2.4 % (1.0-8.0); PLATELET COUNT 363 thou/uL (150-400); POLYS 87.7 % (36.0-66.0); RBC 5.34 mil/uL (4.20-5.00); RDW 13.9 % (10.5-14.5); WBC 10.5 thou/uL (4.0-11.0)
[2019-10-26 23:15] LABS: CALCIUM 9.2 mg/dL (8.5-10.1); CREATININE 1.2 mg/dL (0.6-1.0); POTASSIUM 3.9 mmol/L (3.5-5.1)
[2019-10-26 23:20] LABS: ALBUMIN 4.2 g/dL (3.4-5.0); MAGNESIUM 1.4 mg/dL (1.8-2.4); TOTAL BILIRUBIN 0.6 mg/dL (<0.1-1.0); TOTAL PROTEIN 8.5 g/dL (6.4-8.2)
[2019-10-27] MEDS ORDERED: REGLAN 10 MG TA10 MG PO (00:30)
[2019-10-27 01:00] VITALS: BP 145/84
--- NOTE | 2019-10-28 08:20 | EKG ---
[place] [address] [facility] [place] [address] ELECTROCARDIOGRAM REPORT Name: RO REA Room #: DEP [facility]#: [id number] Admission: 10/26/19 Attend Phys: Discharge: 10/27/19 Date of : 84 Report #: [id number] THIS REPORT FOR: //name// [facility] ED Test Date: 2019-10-26 Test Time: 23:18:08 Pat Name: RO REA Department: Room: Gender: F Line Technician: VADIM : 1980 Requested By: Johnny Chapin Order Number: [id number] MD: Josse Suárez Measurements Intervals [place] Rate: 132 P: 62 AL: 121 QRS: 10 QRSD: 81 T: -21 QT: 327 QTc: 485 Interpretive Statements Sinus tachycardia Borderline T abnormalities, inferior leads Compared to ECG 06/10/2019 07:47:21 T-wave abnormality now present Electronically Signed On 10-28-2019 8:20:24 SAP BW CONSULTANT by Josse Suárez [email or web address] <ELECTRONICALLY SIGNED> By: Josse Suárez MD, [facility] 10/28/19 0820 17 Josse Suárez MD, FACC /EPI
== END 2019-10-27 01:01 | disposition home or self-care (01) ==
LOC: ER 21:51
PROVIDERS: Emergency Medicine
DX: R11.2 Nausea with vomiting, unspecified (principal); R19.7 Diarrhea, unspecified; I10 Essential (primary) hypertension; E11.9 Type 2 diabetes mellitus without complications; J45.909 Unspecified asthma, uncomplicated; F41.9 Anxiety disorder, unspecified; M79.7 Fibromyalgia; F17.210 Nicotine dependence, cigarettes, uncomplicated; Z88.5 Allergy status to narcotic agent; Z88.8 Allergy status to other drugs, medicaments and biological substances

== ENCOUNTER 2020-01-03 15:26 | Emergency (ER) | payer OTHER ==
[~2020-01-03] VITALS: Ht 172.7 cm; Wt 113.4 kg
[2020-01-03 16:48] LABS: ABSOLUTE NEUTROPHILS 6.9 thou/uL (1.4-8.2); HEMATOCRIT 38.5 % (37.0-47.0); HEMOGLOBIN 12.6 gm/dL (12.0-15.0); LYMPHOCYTES 32.5 % (24.0-44.0); MCH 26.3 pg (26.0-34.0); MCHC 32.7 g/dL (28.0-37.0); MCV 80.4 fL (80.0-100.0); MONOCYTES 5.1 % (1.0-8.0); PLATELET COUNT 312 thou/uL (150-400); POLYS 57.4 % (36.0-66.0); RBC 4.78 mil/uL (4.20-5.00); RDW 13.5 % (10.5-14.5); WBC 12.1 thou/uL (4.0-11.0)
[2020-01-03 17:01] LABS: ANION GAP 6 mmol/L (7-16); BUN 8 mg/dL (7-18); CALCIUM 9.3 mg/dL (8.5-10.1); CHLORIDE 101 mmol/L (98-107); CO2 29 mmol/L (21-32); CREATININE 0.8 mg/dL (0.6-1.0); GLUCOSE 162 mg/dL (74-106); POTASSIUM 3.6 mmol/L (3.5-5.1); SODIUM 136 mmol/L (136-145)
[2020-01-03 17:10] LABS: ALBUMIN 3.5 g/dL (3.4-5.0); SGOT 19 U/L (15-37); SGPT 19 U/L (30-65); TOTAL BILIRUBIN 0.3 mg/dL (<0.1-1.0); TOTAL PROTEIN 7.3 g/dL (6.4-8.2); TROPONIN-I <0.06 ng/mL (<0.06)
[2020-01-03] MEDS ORDERED: PRILOSEC OTC20 MG PO (17:26)
[2020-01-03] MEDS ORDERED: GUAIFEN-CODEINE10 ML PO (18:53)
[2020-01-03 19:07] VITALS: BP 137/85
== END 2020-01-03 19:08 | disposition home or self-care (01) ==
LOC: ER 15:26
PROVIDERS: Emergency Medicine
DX: J06.9 Acute upper respiratory infection, unspecified (principal); R42 Dizziness and giddiness; E11.9 Type 2 diabetes mellitus without complications; J45.909 Unspecified asthma, uncomplicated; E78.5 Hyperlipidemia, unspecified; M79.7 Fibromyalgia; E66.9 Obesity, unspecified; F17.210 Nicotine dependence, cigarettes, uncomplicated; Z88.5 Allergy status to narcotic agent; Z88.8 Allergy status to other drugs, medicaments and biological substances; Z79.899 Other long term (current) drug therapy; Z79.4 Long term (current) use of insulin

== ENCOUNTER 2020-07-02 23:23 | Emergency (ER) | payer OTHER ==
[~2020-07-02] VITALS: Ht 172.7 cm; Wt 108.9 kg
[~2020-07-02 23:23] MED LIST changes: +GUAIFEN-CODEINE10 ML PO; +PRILOSEC OTC20 MG PO
[2020-07-03] MEDS ORDERED: NORCO 10-325 T1 EACH PO (00:14)
[2020-07-03] MEDS ORDERED: NOVOLOG100 UNIT/M SUBQ (00:16)
[2020-07-03 00:30] LABS: ANION GAP 11 mmol/L (7-16); BUN 9 mg/dL (7-18); CALCIUM 8.6 mg/dL (8.5-10.1); CHLORIDE 101 mmol/L (98-107); CO2 27 mmol/L (21-32); CREATININE 0.8 mg/dL (0.6-1.0); GLUCOSE 291 mg/dL (74-106); SODIUM 139 mmol/L (136-145)
[2020-07-03 00:40] LABS: ALBUMIN 3.4 g/dL (3.4-5.0); SGOT 15 U/L (15-37); SGPT 22 U/L (30-65); TOTAL BILIRUBIN 0.2 mg/dL (0.2-1.0); TOTAL PROTEIN 7.2 g/dL (6.4-8.2); TROPONIN-I <0.06 ng/mL (<0.06)
[2020-07-03 00:45] LABS: URINE BILIRUBIN NEGATIVE (Negative); URINE BLOOD NEGATIVE (Negative); URINE CLARITY CLEAR; URINE COLOR YELLOW; URINE GLUCOSE-RANDOM* 3+ (Negative); URINE KETONES NEGATIVE (Negative); URINE LEUKOCYTES-REFLEX NEGATIVE (Negative); URINE NITRITE-REFLEX NEGATIVE (Negative); URINE PROTEIN (DIPSTICK) NEGATIVE (Negative); URINE UROBILINOGEN 0.2 E.U./dl (0.2-1.0)
[2020-07-03 00:46] LABS: ABSOLUTE NEUTROPHILS 7.2 thou/uL (1.4-8.2); BASOPHILS 0.5 % (0.0-2.0); EOSINOPHILS 4.6 % (0.0-3.0); HEMATOCRIT 37.7 % (37.0-47.0); HEMOGLOBIN 12.4 gm/dL (12.0-15.0); LYMPHOCYTES 34.3 % (24.0-44.0); MCH 26.7 pg (26.0-34.0); MCV 80.9 fL (80.0-100.0); MONOCYTES 4.4 % (1.0-8.0); PLATELET COUNT 323 thou/uL (150-400); POLYS 56.2 % (36.0-66.0); RBC 4.66 mil/uL (4.20-5.00); RDW 13.5 % (10.5-14.5); WBC 12.9 thou/uL (4.0-11.0)
[2020-07-03] MEDS ORDERED: PREDNISONE 20 M20 MG PO (01:08)
[2020-07-03 01:12] VITALS: BP 152/79
--- NOTE | 2020-07-03 10:19 | EKG ---
[facility] [place] [address] ELECTROCARDIOGRAM REPORT Name: RO REA Room #: DEP [facility]#: [id number] Admission: 07/02/20 Attend Phys: Discharge: 07/03/20 Date of : 84 Report #: [id number] THIS REPORT FOR: cc: Mary Carmen Bahena Christine L. DO Lundgren, Craig H. MD [facility] ~ THIS REPORT FOR: //name// [facility] ED Test Date: 2020-07-03 Test Time: 00:08:53 Pat Name: RO REA Department: Room: Gender: F Patents Examiner: [place] [address] : 1980 Requested By: Milton Nix Order Number: [id number] MD: Josse Suárez Measurements Intervals [place] Rate: 81 P: 60 ME: 135 QRS: 34 QRSD: 79 T: 13 QT: 372 QTc: 432 Interpretive Statements Sinus rhythm No significant abnormality Compared to ECG 10/26/2019 23:18:08 Sinus tachycardia no longer present Electronically Signed On 07-03-2020 10:19:49 CDT by Josse Suárez [email or web address] <ELECTRONICALLY SIGNED> By: Josse Suárez MD, FACC 07/03/20 1019 0008 0008 Josse Suárez MD, [facility] /EPI
--- NOTE | 2020-07-04 08:20 | EKG ---
[facility] [place] [address] ELECTROCARDIOGRAM REPORT Name: RO REA [id number] Admission: 07/02/20 Attend Phys: Discharge: 07/03/20 Date of : 84 Report #: [id number] THIS REPORT FOR: cc: Mary Carmen Bahena Christine L. DO Lundgren,Josse Luther MD [facility] THIS REPORT FOR: //name// [facility] ED Test Date: 2020-07-03 Test Time: 05:03:12 Pat Name: RO REA Department: Room: Gender: F Human Resources Benefits Assistant: [facility] : 1980 Requested By: Milton Nix Order Number: [id number] MD: Josse Suárez Measurements Intervals [place] Rate: 0 P: 0 WI: QRS: 0 QRSD: T: QT: QTc: 0 Interpretive Statements All 12 leads are missing Electronically Signed On 07-04-2020 8:20:12 CDT by Josse Suárez [email or web address] <ELECTRONICALLY SIGNED> By: Josse Suárez MD, [facility] 07/04/20819 0503 0503 Josse Suárez MD, FACC /EPI
== END 2020-07-03 01:25 | disposition home or self-care (01) ==
LOC: ER 23:23
PROVIDERS: Emergency Medicine
DX: R06.02 Shortness of breath (principal); R53.1 Weakness; R42 Dizziness and giddiness; E11.9 Type 2 diabetes mellitus without complications; J45.909 Unspecified asthma, uncomplicated; I10 Essential (primary) hypertension; E78.5 Hyperlipidemia, unspecified; M79.7 Fibromyalgia; F41.9 Anxiety disorder, unspecified; E66.9 Obesity, unspecified; F17.210 Nicotine dependence, cigarettes, uncomplicated; Z20.828 Contact with and (suspected) exposure to other viral communicable diseases; Z79.899 Other long term (current) drug therapy; Z79.4 Long term (current) use of insulin; Z88.5 Allergy status to narcotic agent; Z88.8 Allergy status to other drugs, medicaments and biological substances

== ENCOUNTER 2021-01-03 11:25 | Inpatient (IN) | payer BC, OTHER ==
[~2021-01-03] VITALS: Ht 170.2 cm; Wt 108.9 kg
[~2021-01-03 11:25] MED LIST changes: +NOVOLOG100 UNIT/M SUBQ
[2021-01-03 11:34] VITALS: BP 130/88
[2021-01-03 12:16] LABS: HEMATOCRIT 45.9 % (37.0-47.0); MCH 26.2 pg (26.0-34.0); MCHC 32.7 g/dL (28.0-37.0); MCV 80.3 fL (80.0-100.0); PLATELET COUNT 566 thou/uL (150-400); RBC 5.72 mil/uL (4.20-5.00); RDW 14.8 % (10.5-14.5); WBC 20.8 thou/uL (4.0-11.0)
[2021-01-03 12:27] LABS: CALCIUM 9.7 mg/dL (8.5-10.1); CREATININE 1.2 mg/dL (0.6-1.0); POTASSIUM 4.4 mmol/L (3.5-5.1)
[2021-01-03 12:33] LABS: ALBUMIN 4.6 g/dL (3.4-5.0); TOTAL BILIRUBIN 0.8 mg/dL (0.2-1.0); TOTAL PROTEIN 9.3 g/dL (6.4-8.2)
[2021-01-03 14:15] LABS: LARGE PLATELETS RARE
[2021-01-03] MEDS ORDERED: VANCOCIN 125 M125 M1 PO (15:40)
[2021-01-03] MEDS ORDERED: ONDANSETRON HCL4 M2 PO (15:41)
[2021-01-03 15:42] LABS: URINE BILIRUBIN NEGATIVE (Negative); URINE BLOOD 3+ (Negative); URINE CLARITY SL CLOUDY; URINE COLOR YELLOW; URINE GLUCOSE-RANDOM* 2+ (Negative); URINE KETONES NEGATIVE (Negative); URINE LEUKOCYTES-REFLEX NEGATIVE (Negative); URINE NITRITE-REFLEX NEGATIVE (Negative); URINE PROTEIN (DIPSTICK) NEGATIVE (Negative); URINE UROBILINOGEN 0.2 E.U./dl (0.2-1.0)
[2021-01-03 15:53] LABS: BACTERIA-REFLEX 1-9 Few /HPF (None Seen); CASTS None Seen /LPF (None Seen); CRYSTALS None Seen /LPF (None Seen); SQUAMOUS >10 Many /LPF (0-3); URINE RBC 3-10 Few /HPF (0-2); URINE WBC-REFLEX None Seen /HPF (0-5)
[2021-01-03] MEDS ORDERED: JANUVIA100 MG PO (17:13)
[2021-01-03 18:20] VITALS: BP 160/85
[2021-01-03 18:22] VITALS: BP 160/85
[2021-01-03 19:17] VITALS: BP 160/85
--- NOTE | 2021-01-03 19:18 | NUR ---
PT HITTING CALLLIGHT REPEATEDLY AND YELLING OUT OF ROOM MULTIPLE TIMES. PULLED BACK LILA AND LET PT KNOW THAT WE WERE IN SHIFT CHANGE THAT I WAS GETTING REPORT ON HER AND 3 OTHER PATIENTS AND I WOULD BE IN WITH HER SOON I COULD. PT STARTED YELLING THAT SHE HAD BEEN WAITING OVER AN HOUR FOR HER MEDICATION. ATTMEMPTED TO EXPLAIN TO PT THAT THERE HAD BEEN MULIPLE AMBULANCES COME IN IN THE LAST HOUR AND THE NURSES WERE BUSY. PT STARTED TALKING OVER ME STATING THAT SHE DIDNT CARE AND SHE DIDNT LIKE THE WAY I WAS TALKING TO HER. I ATTEMPTED TO REASON WITH PT EXPLAINING AGAIN THAT THE ER WAS A BUSY PLACE AND WE WERE TRYING TO FINISH REPORT THEN HER MEDICATION WOULD BE ADRESSED. PT YELLING THAT SHE DIDNT WANT TO HEAR THAT AND WASNT GOING TO ARGUE WITH ME AND I BETTER JUST GET HER MEDS. I CLOSED PT LILA AND WENT TO DESK TO CONTINUE REPORT. PT STARTED SCREAMING AT THE TOP OF HER LUNGS THAT I WAS DISRESPECTFUL AND I HATED MY JOB. WHEN I LOOKED PT HAD BEE GIVEN THE MEDICATIONS SHE WAS REQUESTING 20 MIN PRIOR. PT ALSO HAD A BED ASSIGNED. WHEN I ATTEMPTED TO EXPLAIN THIS TO PT SHE IMMEDIATELY STARTED YELLING OVER ME AND WOULD NOT LISTEN TO ANYTHING I WAS SAYING.
[2021-01-03 19:45] VITALS: BP 147/91
--- NOTE | 2021-01-03 20:00 | NUR ---
PT WAS AN ADMIT FROM ER FOR VOMITING AND DIARHEA. LUNGS ARE CLEAR ON ROOM AIR. ALERT AND ORIENTED X4. LOOSE STOOLS PT REPORTS. SMOKES DAILY. REQUESTING A NICTINE PATCH. ABDOMEN IS ROUND AND SOFT. BOWEL SOUNDS HYPERACTIVE X4. PT ON ADMISSION WAS CRYING SAYS SHE HAS BEEN IN THE ER SINCE 10AM THIS MORNING AND IS CRYING . ATTEMPTED TO CALM DOWN AND ADMISSION DONE AND CALL LIGHT WITHIN REACH FOR NURSING ASSISTANCE.
--- NOTE | 2021-01-04 03:50 | NUR ---
CONTINUE ONGOING NURSING CARE NAUSEA AND PAIN MANAGEMENT NEEDED PER PT REQUEST SEE MAR FOR TIME OF ADMINISTRATION OF MEDS. COMPLAINTS OF ABDOMINAL PAIN. CONTACT CART OUTSIDE ROOM FOR C-DIFF STOOL PENDING RESULTS.
[2021-01-04 04:45] VITALS: BP 97/51
[2021-01-04 05:38] LABS: HEMATOCRIT 36.2 % (37.0-47.0); MCH 26.4 pg (26.0-34.0); MCHC 32.7 g/dL (28.0-37.0); MCV 80.9 fL (80.0-100.0); RBC 4.48 mil/uL (4.20-5.00); RDW 14.5 % (10.5-14.5); WBC 10.7 thou/uL (4.0-11.0)
[2021-01-04 05:46] LABS: CREATININE 1.1 mg/dL (0.6-1.0)
[2021-01-04 05:52] LABS: HEMOGLOBIN 11.8 gm/dL (12.0-15.0)
[2021-01-04 05:58] LABS: CALCIUM 7.7 mg/dL (8.5-10.1); POTASSIUM 3.2 mmol/L (3.5-5.1)
[2021-01-04 07:15] VITALS: BP 121/63
[2021-01-04 15:30] VITALS: BP 130/68
[2021-01-04 17:20] LABS: MAGNESIUM 1.8 mg/dL (1.8-2.4); POTASSIUM 3.8 mmol/L (3.5-5.1)
--- NOTE | 2021-01-04 17:38 | NUR ---
SHIFT SUMMARY: ALERT AND ORIENTED AND VITALS STABLE. C/O PAIN AND ANXIETY AND MEDICATED WITH PRN MEDS. TEARFUL AT TIMES AND TALKED WITH TRAMAIN EARLIER TODAY C/O E.D AND LAST NIGHT'S STAFF. THIS EVENING HAS BECOME TEARFUL AND WANTS TO LEAVE THE HOSPITAL SO SHE CAN SMOKE A CIGARETTE AND SEE HER . I TRIED TO REASON WITH HER THAT SHE IS STILL SICK AND NEEDS THE CONTINUED ANTIBIOTICS AND FOR I.D. PHYSICIAN TO ROUND ON HER. I SENT A MESSAGE TO DR. RODRÍGUEZ VIA [employer]. PATIENT ON THE PHONE WITH AND WILL MAKE DECISION SOON. MANAGER COLLECTION ALSO NOTIFIED.
--- NOTE | 2021-01-04 17:59 | NUR ---
DR. RODRÍGUEZ CALLED BACK AND STATED IF PATIENT HAS MADE UP HER TO GO AMA AND ALL CONSEQENCES HAVE BEEN EXPLAINED TO HER THEN SO BE IT. PATIENT SIGNED THE AMA PAPERWORK AND CALLED TO MEET HER AT THE E.D EXIT. I.V HELENA'D.
== END 2021-01-04 18:00 | disposition left against medical advice (07) | DRG 872 ==
LOC: ER 11:25 → EROBS 17:40 → 2N 17:40
PROVIDERS: Physician Assistant; ADMIT Hospitalist; ATTEND Hospitalist
DX: A41.9 Sepsis, unspecified organism (principal); A04.72 Enterocolitis due to Clostridium difficile, not specified as recurrent; N17.9 Acute kidney failure, unspecified; J45.909 Unspecified asthma, uncomplicated; E78.5 Hyperlipidemia, unspecified; F41.9 Anxiety disorder, unspecified; I12.9 Hypertensive chronic kidney disease with stage 1 through stage 4 chronic kidney disease, or unspecified chronic kidney disease; E66.9 Obesity, unspecified; E11.22 Type 2 diabetes mellitus with diabetic chronic kidney disease; G89.4 Chronic pain syndrome; F17.210 Nicotine dependence, cigarettes, uncomplicated; N18.9 Chronic kidney disease, unspecified; Z53.29 Procedure and treatment not carried out because of patient's decision for other reasons; Z68.37 Body mass index [BMI] 37.0-37.9, adult; Z88.6 Allergy status to analgesic agent; Z88.8 Allergy status to other drugs, medicaments and biological substances; Z79.899 Other long term (current) drug therapy
CPT/HCPCS: 10081